=== PATIENT | male | born 1990 | race Two or more races ===

== ENCOUNTER 2020-06-25 14:34 | Inpatient (IN) | payer MEDICAID, OTHER ==
[~2020-06-25] VITALS: Ht 170.2 cm; Wt 148.8 kg
[2020-06-25 15:41] LABS: Basophils # (auto) 0.1 10 ^3/uL (0-0.2); Basophils % (auto) 0.6 % (0.0-2.0); Eosinophils # (auto) 0.1 10 ^3/uL (0-0.8); Eosinophils % (auto) 0.9 % (0.0-7.0); Hematocrit 34.9 % (41.0-53.0); Hemoglobin 11.4 g/dL (13.5-17.5); Lymphocytes % (auto) 29.5 % (10.0-50.0); Mean Corpuscular Hemoglobin 28.3 pg (28.0-32.0); Mean Corpuscular Hgb Conc. 32.7 g/dL (32.0-36.0); Mean Corpuscular Volume 86.6 fL (80.0-100.0); Monocytes # (auto) 0.6 10 ^3/uL (0-1.3); Monocytes % (auto) 5.6 % (0.0-12.0); Neutrophils # (auto) 6.5 10 ^3/uL (1.6-8.6); Neutrophils % (auto) 63.4 % (37.0-80.0); Nucleated Red Blood Cells % 0.2 %; Platelet Count (auto) 374 10^3/uL (140-450); Red Blood Cells 4.03 10^6/uL (4.5-5.90); Red Cell Distribution Width 13.4 % (11.8-14.3); White Blood Cell 10.2 10^3/uL (4.4-10.8)
[2020-06-25 15:58] LABS: Albumin 2.8 g/dL (3.4-5.0); BUN/Creatinine Ratio 12.6; Calcium 9.4 mg/dL (8.5-10.1); Potassium 3.8 mmol/L (3.5-5.1)
[2020-06-25] MEDS ORDERED: PIPERACILLIN-TAZOB 3.375GM 100 ML IV ONE (16:00)
[2020-06-25 16:01] LABS: Bilirubin, Total 0.3 mg/dL (0.2-1.0); Total Protein 9.1 g/dL (6.4-8.2)
[2020-06-25] MEDS ORDERED: SODIUM CHLORIDE 0.9% 1,000 ML IV ONE (19:15)
[2020-06-25] MEDS ORDERED: IOHEXOL 300 MG/ML 100ML BOTTLE IJ ONE (20:17)
[2020-06-25] MEDS ORDERED: NITROGLYCERIN 0.4 MG SL TAB SL PRN (23:15)
[2020-06-25] MEDS ORDERED: ACETAMINOPHEN 325 MG TAB PO PRN (23:15)
[2020-06-25] MEDS ORDERED: MORPHINE SULF INJ 2 MG/ML SYRINGE 1ML IV PRN (23:15)
[2020-06-25] MEDS ORDERED: HYDROcodone-ACET 5/325MG TAB PO PRN (23:15)
[2020-06-25] MEDS ORDERED: VANCOMYCIN 1GM/250ML 250 ML IV SCH (23:15)
[2020-06-25 23:59] VITALS: BP 110/65
[2020-06-26] MEDS ORDERED: PIPERACILLIN-TAZOB 3.375GM 100 ML IV SCH
[2020-06-26] MEDS ORDERED: VANCOMYCIN 1GM/250ML 250 ML IV ONE (00:30)
[2020-06-26 03:04] VITALS: BP 110/65
[2020-06-26] MEDS ORDERED: ARIP1TAB7 PO (03:27)
[2020-06-26] MEDS ORDERED: ALBUAER3 IN (03:27)
[2020-06-26] MEDS ORDERED: ESCI10TA53 PO (03:27)
[2020-06-26] MEDS ORDERED: BUSP15TA60 PO (03:27)
[2020-06-26] MEDS ORDERED: LOVA20TA4 PO (03:27)
[2020-06-26] MEDS ORDERED: METF-370 PO (03:27)
[2020-06-26] MEDS ORDERED: TOPI50TA53 PO (03:27)
[2020-06-26] MEDS ORDERED: ATEN100T PO (03:27)
[2020-06-26 05:00] VITALS: BP 128/78
[2020-06-26 06:30] LABS: INR 0.98 (0.9-1.15)
[2020-06-26 06:44] LABS: Albumin 2.4 g/dL (3.4-5.0); Calcium 8.7 mg/dL (8.5-10.1); Potassium 3.5 mmol/L (3.5-5.1)
[2020-06-26 06:50] LABS: Basophils # (auto) 0 10 ^3/uL (0-0.2); Basophils % (auto) 0.6 % (0.0-2.0); Eosinophils # (auto) 0.1 10 ^3/uL (0-0.8); Eosinophils % (auto) 1.7 % (0.0-7.0); Hematocrit 30.3 % (41.0-53.0); Hemoglobin 10.1 g/dL (13.5-17.5); Lymphocytes # (auto) 2.6 10 ^3/uL (0.4-5.4); Lymphocytes % (auto) 36.1 % (10.0-50.0); Mean Corpuscular Hemoglobin 28.9 pg (28.0-32.0); Mean Corpuscular Hgb Conc. 33.2 g/dL (32.0-36.0); Mean Corpuscular Volume 86.9 fL (80.0-100.0); Monocytes # (auto) 0.5 10 ^3/uL (0-1.3); Monocytes % (auto) 6.5 % (0.0-12.0); Neutrophils # (auto) 3.9 10 ^3/uL (1.6-8.6); Neutrophils % (auto) 55.1 % (37.0-80.0); Nucleated Red Blood Cells % 0.1 %; Platelet Count (auto) 271 10^3/uL (140-450); Red Blood Cells 3.49 10^6/uL (4.5-5.90); Red Cell Distribution Width 13.5 % (11.8-14.3); White Blood Cell 7.2 10^3/uL (4.4-10.8)
[2020-06-26 06:52] LABS: BUN/Creatinine Ratio 13.9; Bilirubin, Total 0.3 mg/dL (0.2-1.0); Total Protein 7.5 g/dL (6.4-8.2)
[2020-06-26 08:46] VITALS: BP 119/70
[2020-06-26] MEDS: PANTOPRAZOLE 40 MG TAB PO SCH (09:15)
[2020-06-26] MEDS: PIPERACILLIN-TAZOB 3.375GM 100 ML IV SCH ×3 (09:16→20:08)
[2020-06-26] MEDS: VANCOMYCIN 1GM/250ML 250 ML IV SCH ×2 (11:38→18:25)
[2020-06-26 12:48] VITALS: BP 115/70
[2020-06-26] MEDS ORDERED: DEXTROSE (50%) 50ML SYRG IV PRN (13:45)
[2020-06-26 16:33] VITALS: BP 123/68
[2020-06-26 16:45] LABS: BUN/Creatinine Ratio 10.5; Calcium 8.7 mg/dL (8.5-10.1); Potassium 3.3 mmol/L (3.5-5.1)
[2020-06-26] MEDS: InsuLIN REG 1unit/0.01ml Soln (100units/ml) SC SCH ×2 (18:24→21:38)
[2020-06-26] MEDS: ACCU-CHEK COMFORT CURVE STRIP VI SCH ×2 (18:25→21:35)
[2020-06-26] MEDS: busPIRone HCL 10 MG TAB PO SCH (21:39)
[2020-06-26] MEDS: ATORVASTATIN 20 MG TAB PO SCH (21:39)
[2020-06-26] MEDS: TOPIRAMATE 25 MG TAB PO SCH (21:39)
[2020-06-26 22:00] VITALS: BP 119/69
[2020-06-27] MEDS: PIPERACILLIN-TAZOB 3.375GM 100 ML IV SCH ×4 (01:25→19:51)
[2020-06-27] MEDS: VANCOMYCIN 1GM/250ML 250 ML IV SCH ×2 (03:29→11:46)
[2020-06-27 04:55] VITALS: BP 119/73
[2020-06-27 05:40] LABS: Basophils # (auto) 0.1 10 ^3/uL (0-0.2); Basophils % (auto) 0.9 % (0.0-2.0); Eosinophils # (auto) 0.1 10 ^3/uL (0-0.8); Eosinophils % (auto) 2.1 % (0.0-7.0); Hematocrit 32.1 % (41.0-53.0); Hemoglobin 10.6 g/dL (13.5-17.5); Lymphocytes # (auto) 2.4 10 ^3/uL (0.4-5.4); Lymphocytes % (auto) 39.7 % (10.0-50.0); Mean Corpuscular Hemoglobin 28.6 pg (28.0-32.0); Mean Corpuscular Volume 86.8 fL (80.0-100.0); Monocytes # (auto) 0.4 10 ^3/uL (0-1.3); Neutrophils % (auto) 50.3 % (37.0-80.0); Nucleated Red Blood Cells % 0.1 %; Platelet Count (auto) 264 10^3/uL (140-450); Red Blood Cells 3.69 10^6/uL (4.5-5.90); Red Cell Distribution Width 13.5 % (11.8-14.3)
[2020-06-27] MEDS: ACCU-CHEK COMFORT CURVE STRIP VI SCH ×4 (06:30→22:09)
[2020-06-27] MEDS: InsuLIN REG 1unit/0.01ml Soln (100units/ml) SC SCH ×4 (06:30→22:11)
[2020-06-27] MEDS ORDERED: IOHEXOL 300 MG/ML 100ML BOTTLE IJ ONE (08:20)
[2020-06-27 09:00] VITALS: BP 120/78
[2020-06-27] MEDS: TOPIRAMATE 25 MG TAB PO SCH ×2 (09:22→22:13)
[2020-06-27] MEDS: PANTOPRAZOLE 40 MG TAB PO SCH (09:22)
[2020-06-27] MEDS: ATENOLOL 50 MG TAB PO SCH (09:22)
[2020-06-27] MEDS: busPIRone HCL 10 MG TAB PO SCH ×2 (09:22→22:13)
[2020-06-27] MEDS ORDERED: PATIENTS OWN MEDICATION PO SCH ×2 (10:00)
[2020-06-27] MEDS ORDERED: SULFAMETHOX W/TRIMETH(800/160MG) DS TAB PO ONE (12:15)
[2020-06-27 12:21] LABS: Calcium 8.6 mg/dL (8.5-10.1); Potassium 3.4 mmol/L (3.5-5.1)
[2020-06-27] MEDS: GLIMEPIRIDE 2 MG TAB PO SCH (12:30)
[2020-06-27] MEDS ORDERED: SULF400T11 PO (12:32)
[2020-06-27] MEDS ORDERED: GLIM-6 GT (12:32)
[2020-06-27] MEDS ORDERED: VANCOMYCIN 1GM/250ML 0 ML IV SCH (12:45)
[2020-06-27] MEDS ORDERED: VANCOMYCIN PER PHARMACY 0 MG IV SCH (12:45)
[2020-06-27 13:00] VITALS: BP 101/61
[2020-06-27 17:00] VITALS: BP 105/66
[2020-06-27 22:00] VITALS: BP 97/53
[2020-06-27] MEDS: ATORVASTATIN 20 MG TAB PO SCH (22:13)
[2020-06-28] MEDS: PIPERACILLIN-TAZOB 3.375GM 100 ML IV SCH ×4 (03:05→21:00)
[2020-06-28 05:00] VITALS: BP 106/66
[2020-06-28 05:35] LABS: Basophils # (auto) 0 10 ^3/uL (0-0.2); Basophils % (auto) 0.6 % (0.0-2.0); Eosinophils # (auto) 0.1 10 ^3/uL (0-0.8); Eosinophils % (auto) 1.9 % (0.0-7.0); Hematocrit 33.9 % (41.0-53.0); Hemoglobin 10.9 g/dL (13.5-17.5); Lymphocytes # (auto) 2.6 10 ^3/uL (0.4-5.4); Lymphocytes % (auto) 40.7 % (10.0-50.0); Mean Corpuscular Hemoglobin 28.2 pg (28.0-32.0); Mean Corpuscular Hgb Conc. 32.3 g/dL (32.0-36.0); Mean Corpuscular Volume 87.5 fL (80.0-100.0); Monocytes # (auto) 0.4 10 ^3/uL (0-1.3); Monocytes % (auto) 6.7 % (0.0-12.0); Neutrophils # (auto) 3.2 10 ^3/uL (1.6-8.6); Neutrophils % (auto) 50.1 % (37.0-80.0); Nucleated Red Blood Cells % 0.1 %; Platelet Count (auto) 285 10^3/uL (140-450); Red Blood Cells 3.87 10^6/uL (4.5-5.90); Red Cell Distribution Width 13.9 % (11.8-14.3); White Blood Cell 6.3 10^3/uL (4.4-10.8)
[2020-06-28] MEDS: InsuLIN REG 1unit/0.01ml Soln (100units/ml) SC SCH ×4 (06:36→22:47)
[2020-06-28] MEDS: ACCU-CHEK COMFORT CURVE STRIP VI SCH ×4 (06:44→22:49)
[2020-06-28] MEDS: GLIMEPIRIDE 2 MG TAB PO SCH (06:45)
[2020-06-28 08:00] VITALS: BP 111/70
[2020-06-28] MEDS: TOPIRAMATE 25 MG TAB PO SCH ×2 (08:28→22:18)
[2020-06-28] MEDS: SULFAMETHOX W/TRIMETH(800/160MG) DS TAB PO SCH ×2 (08:28→22:16)
[2020-06-28] MEDS: busPIRone HCL 10 MG TAB PO SCH ×2 (08:29→22:17)
[2020-06-28] MEDS: PANTOPRAZOLE 40 MG TAB PO SCH (08:29)
[2020-06-28] MEDS: ATENOLOL 50 MG TAB PO SCH (08:40)
[2020-06-28 13:00] VITALS: BP 101/66
[2020-06-28 17:00] VITALS: BP 95/46
[2020-06-28 21:27] VITALS: BP 98/56
[2020-06-28] MEDS: ATORVASTATIN 20 MG TAB PO SCH (22:17)
[2020-06-29] MEDS: PIPERACILLIN-TAZOB 3.375GM 100 ML IV SCH ×3 (03:57→15:41)
[2020-06-29 05:35] VITALS: BP 96/58
[2020-06-29 05:49] LABS: Basophils # (auto) 0 10 ^3/uL (0-0.2); Basophils % (auto) 0.6 % (0.0-2.0); Eosinophils # (auto) 0.2 10 ^3/uL (0-0.8); Eosinophils % (auto) 2.3 % (0.0-7.0); Hematocrit 33.8 % (41.0-53.0); Hemoglobin 11.4 g/dL (13.5-17.5); Lymphocytes # (auto) 2.9 10 ^3/uL (0.4-5.4); Lymphocytes % (auto) 41.6 % (10.0-50.0); Mean Corpuscular Hemoglobin 29.4 pg (28.0-32.0); Mean Corpuscular Hgb Conc. 33.8 g/dL (32.0-36.0); Monocytes # (auto) 0.5 10 ^3/uL (0-1.3); Monocytes % (auto) 6.7 % (0.0-12.0); Neutrophils # (auto) 3.4 10 ^3/uL (1.6-8.6); Neutrophils % (auto) 48.8 % (37.0-80.0); Nucleated Red Blood Cells % 0.1 %; Platelet Count (auto) 289 10^3/uL (140-450); Red Blood Cells 3.89 10^6/uL (4.5-5.90); Red Cell Distribution Width 13.9 % (11.8-14.3); White Blood Cell 6.9 10^3/uL (4.4-10.8)
[2020-06-29 06:10] LABS: Calcium 9.1 mg/dL (8.5-10.1); Potassium 3.3 mmol/L (3.5-5.1)
[2020-06-29] MEDS: ACCU-CHEK COMFORT CURVE STRIP VI SCH ×3 (06:24→17:07)
[2020-06-29] MEDS: InsuLIN REG 1unit/0.01ml Soln (100units/ml) SC SCH ×3 (06:32→17:13)
[2020-06-29] MEDS: GLIMEPIRIDE 2 MG TAB PO SCH (06:33)
[2020-06-29] MEDS ORDERED: POTASSIUM CHL 20 Meq TABLET PO ONE ×2 (07:00→13:30)
[2020-06-29] MEDS ORDERED: SOD CHL 0.9%/ KCL 40MEQ 1,000 ML IV SCH (07:00)
[2020-06-29 09:00] VITALS: BP 106/61
[2020-06-29] MEDS: busPIRone HCL 10 MG TAB PO SCH (10:00)
[2020-06-29] MEDS: TOPIRAMATE 25 MG TAB PO SCH (10:00)
[2020-06-29] MEDS: SULFAMETHOX W/TRIMETH(800/160MG) DS TAB PO SCH (10:00)
[2020-06-29] MEDS ORDERED: VANCOMYCIN HCL 1000 MG VL ONE (12:17)
[2020-06-29] MEDS ORDERED: BUPIVACAINE 0.25% INJ 50ML VIAL ONE (12:32)
[2020-06-29] MEDS ORDERED: LIDOCAINE W/ EPINEPHRINE 1 % INJ 30ML ONE (12:32)
[2020-06-29] MEDS ORDERED: MIDAZOLAM HCL 1MG/1ML-2 ML VIAL ONE (12:34)
[2020-06-29] MEDS ORDERED: fentaNYL CITRATE 100 MCG/2 ML VL ONE (12:34)
[2020-06-29] MEDS ORDERED: DexAMETHasone SOD PHOS 10MG/1ML VIAL INJ ONE (12:36)
[2020-06-29] MEDS ORDERED: PROPOFOL 10 MG/ML 20 ML IV ONE (12:37)
[2020-06-29 13:00] VITALS: BP 107/77
[2020-06-29] MEDS ORDERED: LACTATED RINGER'S 1,000 ML IV SCH (13:30)
[2020-06-29] MEDS ORDERED: POTASSIUM CHL 20MEQ/100ML 100 ML IV ONE (13:30)
[2020-06-29] MEDS ORDERED: LABETALOL HCL 5 MG/ML 4ML SYRINGE IV PRN (13:45)
[2020-06-29] MEDS ORDERED: MIDAZOLAM HCL 1MG/1ML-2 ML VIAL IV PRN (13:45)
[2020-06-29] MEDS ORDERED: ACCU-CHEK COMFORT CURVE STRIP VI ONE (13:45)
[2020-06-29] MEDS ORDERED: ePHEDrine SULFATE 50 MG/ML AMP IV PRN (13:45)
[2020-06-29] MEDS ORDERED: MORPHINE SULFATE 4 MG/ML SYR/VIAL IV PRN (13:45)
[2020-06-29] MEDS ORDERED: ONDANSETRON HCL 4 MG/2 ML VIAL IV PRN (13:45)
[2020-06-29] MEDS ORDERED: SODIUM CHLOR 0.9% PF (SALINE LOCK) 10ML VIAL/SYR IV SCH (14:00)
[2020-06-29 14:16] VITALS: BP 136/87
[2020-06-29] MEDS: PANTOPRAZOLE 40 MG TAB PO SCH (15:59)
[2020-06-29] MEDS: ATENOLOL 50 MG TAB PO SCH (15:59)
[2020-06-29 17:00] VITALS: BP 125/73
== END 2020-06-29 21:28 | disposition home health service (06) | DRG 364 ==
LOC: ER 14:34 → TELE 14:35 → TELE-CENTR 23:54 → TELE 06-29 09:22 → TELE-CENTR 06-29 09:24
PROVIDERS: ADMIT Nurse Practitioner; ATTEND Internal Medicine
PROC: 0QBH0ZZ Excision of Left Tibia, Open Approach (ICD-10-PCS; principal; 2020-06-29 12:32)
DX: L03.116 Cellulitis of left lower limb (principal); L02.416 Cutaneous abscess of left lower limb; E11.65 Type 2 diabetes mellitus with hyperglycemia; E66.01 Morbid (severe) obesity due to excess calories; F84.0 Autistic disorder; I10 Essential (primary) hypertension; E87.6 Hypokalemia; D63.8 Anemia in other chronic diseases classified elsewhere; E78.5 Hyperlipidemia, unspecified; K40.20 Bilateral inguinal hernia, without obstruction or gangrene, not specified as recurrent; K42.9 Umbilical hernia without obstruction or gangrene; K76.0 Fatty (change of) liver, not elsewhere classified; L05.01 Pilonidal cyst with abscess; T63.301A Toxic effect of unspecified spider venom, accidental (unintentional), initial encounter; Z68.43 Body mass index [BMI] 50.0-59.9, adult; Z79.899 Other long term (current) drug therapy; T81.30XA Disruption of wound, unspecified, initial encounter; R91.1 Solitary pulmonary nodule; Z79.84 Long term (current) use of oral hypoglycemic drugs; Z20.828 Contact with and (suspected) exposure to other viral communicable diseases; B95.61 Methicillin susceptible Staphylococcus aureus infection as the cause of diseases classified elsewhere; M60.062 Infective myositis, left lower leg
CPT/HCPCS: 36415; 71045; 71260; 73700; 74177; 80048; 80053; 82962; 85025; 85610; 86635; 87040; 87070; 87075; 87077; 87081; 87186; 87205; 93005; 93926; G0378; J1100; J1815; J2250; J2543; J2704; J3480; J3490

== ENCOUNTER 2024-10-19 01:50 | Emergency (ER) | payer MEDICAID ==
[~2024-10-19] VITALS: Ht 172.7 cm; Wt 175.0 kg
[~2024-10-19 01:50] MED LIST: ARIP20TA4 PO; ATEN100T PO; BUSP15TA60 PO; ESCI1TAB36 PO; GLIM2TAB94 GT; LOVA20TA4 PO; METF-370 PO; SULF400T11 PO; TOPI50TA53 PO
[2024-10-19 01:54] VITALS: TEMP 97.7
[2024-10-19 02:05] VITALS: BP 139/79; PULSE 79; RESP 13; O2SAT 100
[2024-10-19 04:13] LABS: Basophils # (auto) 0 10 ^3/uL (0-0.2); Basophils % (auto) 0.4 % (0.0-2.0); Eosinophils # (auto) 0.1 10 ^3/uL (0-0.8); Eosinophils % (auto) 1.1 % (0.0-7.0); Hematocrit 45.9 % (41.0-53.0); Hemoglobin 15.4 g/dL (13.5-17.5); Lymphocytes # (auto) 2.2 10 ^3/uL (0.4-5.4); Lymphocytes % (auto) 20.3 % (10.0-50.0); Mean Corpuscular Hemoglobin 28.7 pg (28.0-32.0); Mean Corpuscular Hgb Conc. 33.6 g/dL (32.0-36.0); Mean Corpuscular Volume 85.3 fL (80.0-100.0); Monocytes # (auto) 0.7 10 ^3/uL (0-1.3); Monocytes % (auto) 6.4 % (0.0-12.0); Neutrophils # (auto) 7.8 10 ^3/uL (1.6-8.6); Neutrophils % (auto) 71.8 % (37.0-80.0); Nucleated Red Blood Cells % 0.1 %; Platelet Count (auto) 183 10^3/uL (140-450); Red Blood Cells 5.38 10^6/uL (4.5-5.90); Red Cell Distribution Width 14.1 % (11.8-14.3); White Blood Cell 10.9 10^3/uL (4.4-10.8)
[2024-10-19 04:33] LABS: Albumin 4.5 g/dL (3.2-4.8); Alkaline Phosphatase 85 U/L (46-116); Anion Gap 9 (5-15); Aspartate Aminotransferase 17 U/L (13-40); BUN/Creatinine Ratio 14.4 (10.0-20.0); Blood Urea Nitrogen 14 mg/dL (9-23); Calcium 10.3 mg/dL (8.7-10.4); Carbon Dioxide 26 mmol/L (20-31); Chloride 100 mmol/L (98-107); Potassium 4.7 mmol/L (3.5-5.1); Total Protein 7.5 g/dL (5.7-8.2)
--- NOTE | 2024-10-19 04:38 | DVH ---
Exam: CT CT AB PEL WO CON-NO ORAL OR IV History: abd pain Comparison Study: CT scan of the abdomen pelvis performed on 06/25/2020. Technique: Multidetector spiral CT of the abdomen and pelvis was performed from lung bases to pubic s ymphysis. Imaging was performed without intravenous contrast. Coronal and sagittal multiplanar refor mats were obtained from the axial data set by the technologist. Radiation Dose : 1. Abdomen/Pelvis: CTDIvol 27.6 mGy, DLP 1621.3 mGy*cm. Findings: Evaluation of vasculature and solid organs is limited due to lack of intravenous contrast use. Lung Bases: Lung bases are clear. Visualized portions of the heart and pericardium are unremarkable. Liver: The liver is enlarged measuring 24.9 cm. Low attenuating liver parenchyma. No focal lesions. Gallbladder and Biliary Tree: The gallbladder is unremarkable. No intrahepatic or extrahepatic bilia ry ductal dilatation. Spleen: Unremarkable Pancreas: The pancreas is grossly unremarkable. Adrenal Glands: Unremarkable Kidneys: Kidneys are unremarkable without calculi or hydronephrosis. GI tract: The stomach is grossly normal in appearance. No evidence of small bowel wall thickening or abnormal dilatation to suggest bowel obstruction. The colon is unremarkable. The appendix is visual ized and is normal. Peritoneum/mesentery/retroperitoneum. No evidence of free intraperitoneal air. No ascites. No evidenc e of suspicious lymphadenopathy. Abdominal Wall: Large umbilical hernia containing bowel loops and iperitoneal fat. No obstruction. Vasculature: The visualized abdominal aorta is normal in size and caliber. Evaluation of abdominal a nd pelvic vessels is limited due to lack of intravenous contrast. Urinary Bladder: Grossly unremarkable for degree of distention. Pelvic Organs: Unremarkable Musculoskeletal: No aggressive focal bony lesions, acute fractures or dislocation. IMPRESSION: 1. Large umbilical hernia containing bowel loops and peritoneal fat. No bowel obstruction. 2. Hepatic steatosis and hepatomegaly.
[2024-10-19 04:40] LABS: Alanine Aminotransferase 49 U/L (7-40); Bilirubin, Total 0.3 mg/dL (0.2-1.0); Glucose 326 mg/dL (74-106); Lipase 82 U/L (12-53); Sodium 135 mmol/L (136-145)
[2024-10-19 04:50] LABS: Blood Alcohol 3.4 mg/dL (<10)
[2024-10-19] MEDS ORDERED: HYDR-4798 PO (05:12)
--- NOTE | 2024-10-19 05:15 | ED.PDOC ---
GI ASSESSMENT HPI Comments This is a 34-year-old male who has a past medical history of diabetes hypertension morbid obese left leg surgery and umbilical hernia. He presents to the emergency room with 2-3 days of severe sharp umbilical pain. He noticed that the neither absolutely going to the restroom and he was able to push the hernia N. he had one episode of nausea but without vomiting. He does not have diarrhea constipation bloody stools. He has no previous episode of a similar nature. Chief Complaint: Abdominal Pain Time Seen by MD: 03:38 Allergies: Coded Allergies: NO KNOWN ALLERGIES (Unverified , 06/25/20) Home Meds Active Scripts Glimepiride (Glimepiride) 2 Mg Tab, 2 MG GT DAILY, #30 MG Prov:MADI CENTENO MD 06/27/20 Sulfamethoxazole-Trimethoprim (Bactrim) 1 Tab Tab, 2 TAB PO BID for 14 Days, #56 MG Prov:MADI CENTENO MD 06/27/20 Reported Medications Topiramate (Topiramate) 50 Mg Tab, 50 MG PO BID for 30 Days, MG 06/26/20 Aripiprazole (Abilify) 20 Mg Tab, 10 MG PO DAILY, TAB 06/26/20 Escitalopram Oxalate (ESCITALOPRAM OXALATE) 10 Mg Tab, 1 TAB PO DAILY, #30 TAB 3 Refills 06/26/20 Metformin Hydrochloride (Metformin Hcl) 500 Mg Tab, 500 MG PO IBID for 30 Days, MG 06/26/20 Lovastatin (Lovastatin) 20 Mg Tab, 0.5 TAB PO DAILY, #30 TAB 5 Refills 06/26/20 Atenolol (Atenolol) 100 Mg Tab, 100 MG PO DAILY for 30 Days, MG 06/26/20 Buspirone Hcl (Buspirone Hcl) 15 Mg Tab, 30 MG PO Q12HR for 30 Days 06/26/20 Mode of Arrival: EMS Past Medical History PAST MEDICAL HISTORY: DM, HTN Surgical History: Unobtainable Family History Family History: Unobtainable Social History Smoker: Non-Smoker Alcohol: Denies ETOH Use Drugs: Denies Drug Use Lives In: Home Constitutional: denies: chills, diaphoresis, fatigue, fever, malaise, sweats, weakness, others EENTM: denies: blurred vision, double vision, ear bleeding, ear discharge, ear drainage, ear pain, ear ringing, eye pain, eye redness, hearing loss, mouth pain, mouth swelling, nasal discharge, nose bleeding, nose congestion, nose pain, photophobia, tearing, throat pain, throat swelling, voice changes, others Respiratory: denies: cough, hemoptysis, orthopnea, SOB at rest, shortness of breath, SOB with excertion, stridor, wheezing, others Gastrointestinal: reports: abdomen distended, abdominal pain, nausea; denies: blood streaked bowels, constipated, diarrhea, dysphagia, difficulty swallowing, hematemesis, melena, poor appetite, poor fluid intake, rectal bleeding, rectal pain, vomiting, others Genitourinary: denies: burning, dysuria, flank pain, frequency, hematuria, incontinence, penile discharge, penile sore, pain, testicle pain, testicle swelling, urgency, others Neurological: denies: dizziness, fainting, headache, left sided numbness, left sided weakness, numbness, paresthesia, pre-existing deficit, right sided numbness, right sided weakness, seizure, speech problems, tingling, tremors, weakness, others Musculoskeletal: denies: back pain, gout, joint pain, joint swelling, muscle pain, muscle stiffness, neck pain, others Integumetry: denies: bruises, change in color, change in hair/nails, dryness, laceration, lesions, lumps, rash, wounds, others Allergic/Immunocompromised: denies: Difficulty Healing, Frequent Infections, Hives, Itching, others Hematologic/Lymphatic: denies: anemia, blood clots, easy bleeding, easy bruising, swollen glands, others Psychiatric: denies: anxiety, bipolar disorder, depression, hopeless, panic disorder, schizophrenia, sleepless, suicidal, others All Other Systems: Reviewed and Negative Physical Exam General Appearance: Mild Distress, Obese HEENT: Normal ENT Inspection, Pharynx Normal, TMs Normal Neck: Full Range of Motion, Non-Tender, Normal, Normal Inspection Respiratory: Chest Non-Tender, Lungs Clear, No Accessory Muscle Use, No Respiratory Distress, Normal Breath Sounds Cardiovascular: No Edema, No JVD, No Murmur, No Gallop, Normal Peripheral Pulses, Regular Rate/Rhythm Breast Exam: Deferred Gastrointestinal: Distended, Hernia, No Organomegaly, No Pulsatile Mass, Normal Bowel Sounds, Soft, Tenderness (Large umbilical hernia reducible) Genitalia: Deferred Pelvic: Deferred Rectal: Deferred Extremities: No calf tenderness, Normal capillary refill, Normal inspection, Normal range of motion, Non-tender, No pedal edema Musculoskeletal : Apperance: Normal Neurologic: Alert, gallery intern II-XII nml as Tested, No Motor Deficits, Normal Affect, Normal Mood, No Sensory Deficits Cerebellar Function: Normal Reflexes: Normal Skin: Dry, Normal Color, Warm Lymphatic: No Adenopathy Was a procedure done? Was a procedure done?: No GI differential Dx Differential Diagnosis: Appendicitis, Aortic dissection, Bowel Obstruction, Cholangitis, Diverticular disease, Gastritis/PUD, Gastroenteritis, GI hemorrhage, Hernia X-Ray, Labs, Meds, VS Vital Signs Date Time Temp Pulse Resp B/P (MAP) Pulse Ox O2 Delivery O2 Flow Rate FiO2 10/19/24 02:05 97.8 79 13 139/79 (99) 100 Lab Test 10/19/24 03:52 Range/Units White Blood Count 10.9 H 4.4-10.8 10^3/uL Red Blood Count 5.38 4.5-5.90 10^6/uL Hemoglobin 15.4 13.5-17.5 g/dL Hematocrit 45.9 41.0-53.0 % Mean Corpuscular Volume 85.3 80.0-100.0 fL Mean Corpuscular Hemoglobin 28.7 28.0-32.0 pg Mean Corpuscular Hemoglobin Concent 33.6 32.0-36.0 g/dL Red Cell Distribution Width 14.1 11.8-14.3 % Platelet Count 183 140-450 10^3/uL Mean Platelet Volume 11.1 H 6.9-10.8 fL Neutrophils (%) (Auto) 71.8 37.0-80.0 % Lymphocytes (%) (Auto) 20.3 10.0-50.0 % Monocytes (%) (Auto) 6.4 0.0-12.0 % Eosinophils (%) (Auto) 1.1 0.0-7.0 % Basophils (%) (Auto) 0.4 0.0-2.0 % Neutrophils # (Auto) 7.8 1.6-8.6 10 ^3/uL Lymphocytes # (Auto) 2.2 0.4-5.4 10 ^3/uL Monocytes # (Auto) 0.7 0-1.3 10 ^3/uL Eosinophils # (Auto) 0.1 0-0.8 10 ^3/uL Basophils # (Auto) 0 0-0.2 10 ^3/uL Nucleated Red Blood Cells 0.1 % Sodium Level 135 L 136-145 mmol/L Potassium Level 4.7 3.5-5.1 mmol/L Chloride Level 100 98-107 mmol/L Carbon Dioxide Level 26 20-31 mmol/L Anion Gap 9 5-15 Blood Urea Nitrogen 14 9-23 mg/dL Creatinine 0.97 0.700-1.30 mg/dL Glomerular Filtration Rate Calc 106 >90 mL/min BUN/Creatinine Ratio 14.4 10.0-20.0 Serum Glucose 326 H 74-106 mg/dL Lactic Acid Level 2.0 0.4-2.0 mmol/L Calcium Level 10.3 8.7-10.4 mg/dL Total Bilirubin 0.3 0.2-1.0 mg/dL Aspartate Amino Transferase (AST) 17 13-40 U/L Alanine Aminotransferase (ALT) 49 H 7-40 U/L Alkaline Phosphatase 85 46-116 U/L Total Protein 7.5 5.7-8.2 g/dL Albumin 4.5 3.2-4.8 g/dL Lipase 82 H 12-53 U/L Plasma/Serum Blood Alcohol 3.4 <10 mg/dL [place] [id number] Ph: [phone] DIAGNOSTIC IMAGING Diagnostic Imaging Report : [id number] Signed PATIENT: LETI FIGUEREDO ACCT: [id number] UNIT: [id number] : 1990 LOC: ER ROOM / BED: / AGE / SEX: 34 / M ADM STATUS: REG ER SERVICE [id number] ORDERING PHYSICIAN: VALERIE URIAS MD PROCEDURE(s): ABPL - CT AB PEL WO CON-NO ORAL OR IV REASON: abd pain ORDER NUMBER(s): [id number], ACCESSION NUMBER(s): [id number] Exam: CT CT AB PEL WO CON-NO ORAL OR IV History: abd pain Comparison Study: CT scan of the abdomen pelvis performed on 06/25/2020. Technique: Multidetector spiral CT of the abdomen and pelvis was performed from lung bases to pubic symphysis. Imaging was performed without intravenous contrast. Coronal and sagittal multiplanar reformats were obtained from the axial data set by the technologist. Radiation Dose : 1. Abdomen/Pelvis: CTDIvol 27.6 mGy, DLP 1621.3 mGy*cm. Findings: Evaluation of vasculature and solid organs is limited due to lack of intravenous contrast use. Lung Bases: Lung bases are clear. Visualized portions of the heart and pericardium are unremarkable. Liver: The liver is enlarged measuring 24.9 cm. Low attenuating liver parenchyma. No focal lesions. Gallbladder and Biliary Tree: The gallbladder is unremarkable. No intrahepatic or extrahepatic biliary ductal dilatation. Spleen: Unremarkable Pancreas: The pancreas is grossly unremarkable. Adrenal Glands: Unremarkable Kidneys: Kidneys are unremarkable without calculi or hydronephrosis. GI tract: The stomach is grossly normal in appearance. No evidence of small bowel wall thickening or abnormal dilatation to suggest bowel obstruction. The colon is unremarkable. The appendix is visualized and is normal. Peritoneum/mesentery/retroperitoneum. No evidence of free intraperitoneal air. No ascites. No evidence of suspicious lymphadenopathy. Abdominal Wall: Large umbilical hernia containing bowel loops and iperitoneal fat. No obstruction. Vasculature: The visualized abdominal aorta is normal in size and caliber. Evaluation of abdominal and pelvic vessels is limited due to lack of intravenous contrast. Urinary Bladder: Grossly unremarkable for degree of distention. Pelvic Organs: Unremarkable Musculoskeletal: No aggressive focal bony lesions, acute fractures or dislocation. IMPRESSION: 1. Large umbilical hernia containing bowel loops and peritoneal fat. No bowel obstruction. 2. Hepatic steatosis and hepatomegaly. ATED BY: DOT GONZALEZ MD DICTATED DATE/TIME: 10/19/24434 SIGNED BY: DOT GONZALEZ MD SIGNED DATE/TIME: 10/19/24434 CC: Lipase is 82. CBC and CMP are normal. Acknowledge a large umbilical hernia with pannus formation. Abdominal pelvis CT reveals no obstruction. The patient is reported to his primary care physician surgical referral. Time of 1ST Reevaluation: 05:08 Reevaluation 1ST: Improved Patient Education/Counseling: Diagnosis, Treatment, Prognosis, Need For Follow Up Family Education/Counseling: No Family Present Departure 1 Departure Time of Disposition: 05:10 Impression: Primary Impression: Umbilical hernia without mention of obstruction or gangrene Disposition: HOME / SELF CARE / HOMELESS Condition: Stable Additional Instructions: Reassessed patient, vital signs stable. Denies any new symptoms. Patient is able to tolerate PO and ambulate/be mobile at their baseline without concern. Risks and benefits of all medications given or prescribed, if any, discussed. All lab work, imaging and diagnostic studies were reviewed by me. The patient was counseled extensively on my clinical impression, diagnosis, expected course of the disease, and plan, including their follow-up care. Will discharge patient. Patient instructed to follow up with Primary Care Physician within 24-48 hours. Strict return precautions given for further exacerbation of symptoms or for new symptoms. The patient was given the opportunity to ask questions and all questions were answered by myself and the nursing/tech staff. Patient is in agreement with the care plan. The patient verbally expressed understanding of the discharge instructions, including the reasons to return to the Emergency Department. e-Prescriptions Hydrocodone-Acetaminophen (Hydrocodone Bitartrate/AC 10-325 mg) 1 Tab Tab 1 TAB PO QIDPRN, #20 TAB Prov: VALERIE URIAS MD 10/19/24 Discharged With: Self Critical Care Note Critical Care Time?: No Stability Stability form required: VALERIE Tena MD Oct 19, 2024 05:15
== END 2024-10-19 05:16 | disposition left against medical advice (07) ==
LOC: EDBD 01:50 → EDUNIT# 01:50 → ER 01:50
DX: K42.9 Umbilical hernia without obstruction or gangrene (principal); E11.9 Type 2 diabetes mellitus without complications; I10 Essential (primary) hypertension; Z79.899 Other long term (current) drug therapy
CPT/HCPCS: 36415; 74176; 80053; 80320; 83605; 83690; 85025